=== PATIENT | female | born 1970 | race American Indian/Alaskan Native ===

== ENCOUNTER 2018-05-07 00:56 | Emergency (ER) | payer SELFPAY ==
[2018-05-07] MEDS ORDERED: ASPIRIN PO ONE (01:41)
[2018-05-07 01:58] LABS: Eosinophils # (Auto) 0.1 K/mm3 (0.0-0.4); Eosinophils % (Auto) 1.6 % (0.0-4.3); Hematocrit 35.3 % (30.3-42.9); Hemoglobin 11.4 gm/dl (10.1-14.3); Lymphocytes # (Auto) 1.9 K/mm3 (1.2-5.4); Lymphocytes % (Auto) 47.8 % (13.4-35.0); Mean Corpuscular HGB Conc 32 % (30-34); Mean Corpuscular Volume 84 fl (79-97); Monocytes # (Auto) 0.2 K/mm3 (0.0-0.8); Monocytes % (Auto) 5.6 % (0.0-7.3); Platelet Count 203 K/mm3 (140-440); Red Blood Count 4.22 M/mm3 (3.65-5.03); Red Cell Distribution Width 14.4 % (13.2-15.2)
[2018-05-07 02:19] LABS: BUN/Creatinine Ratio 27; Blood Urea Nitrogen 19 mg/dL (7-17); Hemolysis Index 8
--- NOTE | 2018-05-07 08:48 | Emergency Department Report ---
HPI - General Chief Complaint: Chest Pain Time Seen by Provider: 05/07/18 08:23 - HPI HPI: This is a 47-year-old female with no problem at medical conditions who presents ED complaining of left-sided chest pain that started yesterday. Patient says before that she has upper arm pain all day yesterday. Patient states that this are all related. Patient states that she does not have any radiation pain from chest or arm. Patient states pain is localized to her mid chest. She denies trauma/injury insurance activities. Patient states she works at her [employer] for [employer]. She denies shortness of breath, fever, chills, dizziness, headaches. ED Past Medical Hx - Past Medical History Previous Medical History?: No - Surgical History Past Surgical History?: Yes Additional Surgical History: hyster - Social History Smoking Status: Never Smoker Substance Use Type: Alcohol - Medications Home Medications: Home Medications Medication Instructions Recorded Confirmed Last Taken Type Cyclobenzaprine [Flexeril] 10 mg PO QHS PRN #20 tablet 05/07/18 Unknown Rx Ibuprofen [Motrin] 800 mg PO Q8HR #30 tablet 05/07/18 Unknown Rx ED Review of Systems ROS: Stated complaint: CHEST PAIN/LT ARM PAIN Other details as noted in HPI Comment: All other systems reviewed and negative Physical Exam - Physical Exam Vital Signs: Vital Signs 05/07/18 05/07/18 05/07/18 01:06 01:37 03:55 Temperature 97.8 F 97.8 F 97.8 F Pulse Rate 98 H 97 H 65 Respiratory 18 18 18 Rate Blood Pressure 146/97 146/97 134/83 O2 Sat by Pulse 99 99 99 Oximetry Physical Exam: GENERAL: Alert and oriented x3, no apparent distress, Normal Gait, atraumatic. HEAD: Head is normocephalic and a-traumatic. NECK: Supple. Non edematous, No lymphadenopathy or thyromegaly. No C-spine tenderness, full range of motion LUNGS: Symetrical with respiration, No wheezing, no rales or crackles, CTAB. HEART: S1, S2 present, regular rate and rhythm without murmur, no rubs, no gallops. Non tender to palpation BACK: Full range of motion, no spinal tenderness, Tenderness to palpation of the trapezius muscles of the back EXTREMITIES/MUSCULOSKELETAL: No cyanosis, clubbing, rash, lesions or edema. Full ROM bilaterally NEUROLOGIC: The patient is cooperative with no focal neurologic deficits. SKIN: Warm and dry, No lesions, No ulceration or induration present. ED Course Vital Signs 05/07/18 05/07/18 05/07/18 01:06 01:37 03:55 Temperature 97.8 F 97.8 F 97.8 F Pulse Rate 98 H 97 H 65 Respiratory 18 18 18 Rate Blood Pressure 146/97 146/97 134/83 O2 Sat by Pulse 99 99 99 Oximetry ED Medical Decision Making - Lab Data Result diagrams: 05/07/18 01:43 05/07/18 01:43 Laboratory Last Values WBC 4.0 K/mm3 (4.5-11.0) L 05/07/18 01:43 RBC 4.22 M/mm3 (3.65-5.03) 05/07/18 01:43 Hgb 11.4 gm/dl (10.1-14.3) 05/07/18 01:43 Hct 35.3 % (30.3-42.9) 05/07/18 01:43 MCV 84 fl (79-97) 05/07/18 01:43 MCH 27 pg (28-32) L 05/07/18 01:43 MCHC 32 % (30-34) 05/07/18 01:43 RDW 14.4 % (13.2-15.2) 05/07/18 01:43 Plt Count 203 K/mm3 (140-440) 05/07/18 01:43 Lymph % (Auto) 47.8 % (13.4-35.0) H 05/07/18 01:43 Assumption % (Auto) 5.6 % (0.0-7.3) 05/07/18 01:43 Eos % (Auto) 1.6 % (0.0-4.3) 05/07/18 01:43 Baso % (Auto) 1.0 % (0.0-1.8) 05/07/18 01:43 Lymph # 1.9 K/mm3 (1.2-5.4) 05/07/18 01:43 Assumption # 0.2 K/mm3 (0.0-0.8) 05/07/18 01:43 Eos # 0.1 K/mm3 (0.0-0.4) 05/07/18 01:43 Baso # 0.0 K/mm3 (0.0-0.1) 05/07/18 01:43 Seg Neutrophils % 44.0 % (40.0-70.0) 05/07/18 01:43 Seg Neutrophils # 1.7 K/mm3 (1.8-7.7) L 05/07/18 01:43 Sodium 143 mmol/L (137-145) 05/07/18 01:43 Potassium 3.5 mmol/L (3.6-5.0) L 05/07/18 01:43 Chloride 107.1 mmol/L (98-107) H 05/07/18 01:43 Carbon Dioxide 26 mmol/L (22-30) 05/07/18 01:43 Anion Gap 13 mmol/L 05/07/18 01:43 BUN 19 mg/dL (7-17) H 05/07/18 01:43 Creatinine 0.7 mg/dL (0.7-1.2) 05/07/18 01:43 Estimated GFR > 60 ml/min 05/07/18 01:43 BUN/Creatinine Ratio 27 % 05/07/18 01:43 Glucose 121 mg/dL (65-100) H 05/07/18 01:43 Calcium 9.0 mg/dL (8.4-10.2) 05/07/18 01:43 Troponin T < 0.010 ng/mL (0.00-0.029) 05/07/18 07:41 - Medical Decision Making 47-year-old female presents with a costochondral chest pain/muscle spasms of the arm. Vital signs are normal patient is acute distress. All labs are within normal limits troponins negative. Discussed this findings with the patient. Discussed with patient to follow up with primary care physician. - Differential Diagnosis costochondral chest pain, TN, muscle spasms, cervical radiculopathy Critical care attestation.: If time is entered above; I have spent that time in minutes in the direct care of this critically ill patient, excluding procedure time. ED Disposition Clinical Impression: Costochondral chest pain, Muscle spasm Disposition: - TO HOME OR SELFCARE Is pt being admited?: No Does the pt Need Aspirin: No Condition: Stable Instructions: Chest Pain (ED), Costochondritis (ED), Trigger Point Pain (ED) Additional Instructions: Make sure to follow up with the primary care physician as discussed. Take all your medications as you've been prescribed. If you have any worsening symptoms or develop new symptoms please return to ED immediately. Prescriptions: Cyclobenzaprine [Flexeril] 10 mg PO QHS PRN #20 tablet PRN Reason: Muscle Spasm Ibuprofen [Motrin] 800 mg PO Q8HR #30 tablet Referrals: BEBE MATIAS MD [Primary Care Provider] - 3-5 Days [facility] [Outside] - 3-5 Days [facility] [Outside] - 3-5 Days Forms: Accompanied Note, Work/School Release Form(ED) Time of Disposition: 08:47
[2018-05-07 09:19] VITALS: BP 131/84
== END 2018-05-07 09:18 | disposition home or self-care (01) ==
LOC: ED 00:56
DX: M94.0 Chondrocostal junction syndrome [Tietze] (principal); R25.2 Cramp and spasm; Z90.710 Acquired absence of both cervix and uterus
CPT/HCPCS: 36415; 80048; 84484; 85025; 93005; 93010